=== PATIENT | female | born 1980 | race Asian ===

== ENCOUNTER 2017-02-25 09:36 | Emergency (ER) | payer BC ==
[2017-02-25 09:55] VITALS: BP 107/71
== END 2017-02-25 11:35 | disposition left against medical advice (07) ==
LOC: UCEAST 09:36
DX: R10.9 Unspecified abdominal pain (principal); Z53.21 Procedure and treatment not carried out due to patient leaving prior to being seen by health care provider
CPT/HCPCS: 81003; 99212; G0463

== ENCOUNTER 2017-02-25 11:53 | Emergency (ER) | payer BC ==
[2017-02-25] MEDS ORDERED: NS 0.9% 1000 ML* 1,000 ML IV ONE ×2 (14:26→17:25)
[2017-02-25] MEDS ORDERED: Ketorolac INJ* 30 MG/ML 1 ML VIAL IV ONE (14:26)
--- NOTE | 2017-02-25 15:33 | RAD ---
HISTORY: Lower pelvic pain, status post hysterectomy COMPARISONS: None TECHNIQUE: Multiple transverse and longitudinal ultrasound images were obtained of the pelvis using transabdominal using the endovaginal transducer. FINDINGS: UTERUS: The patient is status post hysterectomy. ENDOMETRIUM: The patient is status post hysterectomy. CUL-DE-SAC: There is no free fluid within the cul-de-sac. RIGHT OVARY: The right ovary measures 2.3 x 1.5 x 1.9 cm. Normal arterial and venous waveforms are identifiable within the ovary on spectral Doppler imaging. LEFT OVARY: The left ovary measures 3.1 x 1.4 x 2.6 cm. Normal arterial and venous waveforms are identifiable within the ovary on spectral Doppler imaging. BLADDER: The visualized bladder is unremarkable. IMPRESSION: STATUS POST HYSTERECTOMY. OTHERWISE UNREMARKABLE ULTRASOUND OF THE PELVIS.
--- NOTE | 2017-02-25 15:39 | RAD ---
INDICATION: Right lower quadrant pain. COMPARISON: There are no prior studies available for comparison. TECHNIQUE: Multiple real-time images of the right upper quadrant were obtained. FINDINGS: No gallstones are seen. There is a 0.5 cm gallbladder wall polyp. No gallbladder wall thickening or pericholecystic fluid is seen. No positive sonographic Ramos sign is present. No intra or extrahepatic ductal distention is present. The common bile duct measured 0.4 cm in diameter. The liver is normal in size without significant focal abnormality. The pancreas is partially obscured by overlying bowel gas. The right kidney is normal in size without evidence for hydronephrosis. IMPRESSION: 0.5 CM GALLBLADDER WALL POLYP, OTHERWISE UNREMARKABLE STUDY.
[2017-02-25 15:48] LABS: Hematocrit 38 % (35-47); Hemoglobin 12.6 g/dl (12.0-16.0); Mean Corpuscular HGB Conc 33 g/dl (31-36); Mean Corpuscular Hemoglobin 30 pg (27-31); Mean Corpuscular Volume 89 fL (80-97); Mean Platelet Volume 8 um3 (7.4-10.4); Red Blood Count 4.25 10^6/ul (4.0-5.4); Red Cell Distribution Width 13 % (10.5-15); White Blood Count 5.2 10^3/ul (3.5-10.8)
--- NOTE | 2017-02-25 16:05 | ED ---
Crystal Leary Thomas, scribed for Dash Bates MD on 02/25/17 at 1426 . Abdominal Pain/Female - HPI Summary HPI Summary: Pt is a 36 y/o female referred from [facility] presenting to the ED with abdominal pain onset last night. Accompany Sx: Nausea. In room, pt states pain has improved since onset. Describes the pain as a "pushing" sensation. Pt has not eaten today per Urgent Care's recommendation. PMHx: hysterectomy. - History of Current Complaint Chief Complaint: EDAbdPain Stated Complaint: RT FLANK PAIN/SENT F CC Time Seen by Provider: 02/25/17 13:58 Hx Obtained From: Patient Hx Last Menstrual Period: Pt had hysterectomy Onset/Duration: Lasting Hours - since last night, Still Present Timing: Constant Severity Initially: Mild Severity Currently: Mild Pain Intensity: 4 Pain Scale Used: 0-10 Numeric Location: Other - Bilat Lower Abd Pain Character: Other: - "Pushing" Associated Signs and Symptoms: Positive: Nausea Allergies/Adverse Reactions: Allergies Allergy/AdvReac Type Severity Reaction Status Date / Time No Known Allergies Allergy Verified 11/13/12 06:40 PMH/Surg Hx/FS Hx/Imm Hx Previously Healthy: Yes Cardiovascular History: Denies: Hx Coronary Artery Disease Respiratory History: Denies: Hx Chronic Obstructive Pulmonary Disease (COPD) - Surgical History Surgery Procedure, Year, and Place: hysterectomy Infectious Disease History: No Infectious Disease History: Denies: Traveled Outside the [place] in Last 30 Days - Family History Known Family History: Negative: Cardiac Disease, Hypertension - Social History Occupation: Unemployed - stay at home mom Lives: With Family Alcohol Use: None Hx Substance Use: No Substance Use Type: Reports: None Hx Tobacco Use: No Smoking Status (MU): Never Smoked Tobacco Review of Systems Positive: Abdominal Pain, Nausea All Other Systems Reviewed And Are Negative: Yes Physical Exam Triage Information Reviewed: Yes Vital Signs On Initial Exam: Initial Vitals Temp Pulse Resp BP Pulse Ox 99.4 F 68 20 117/72 100 02/25/17 12:04 02/25/17 12:04 02/25/17 12:04 02/25/17 12:04 02/25/17 12:04 Vital Signs Reviewed: Yes Appearance: Positive: Well-Appearing, No Pain Distress Skin: Positive: Warm, Skin Color Reflects Adequate Perfusion, Dry Head/Face: Positive: Normal Head/Face Inspection Eyes: Positive: Normal ENT: Positive: Normal ENT inspection Neck: Positive: Supple, Nontender Respiratory/Lung Sounds: Positive: Clear to Auscultation, Breath Sounds Present Cardiovascular: Positive: RRR Abdomen Description: Positive: Other: - TENDER TO THE LOWER BILAT ABDOMEN; NO REBOUNDING. Negative: Guarding Bowel Sounds: Positive: Present Musculoskeletal: Positive: Normal Neurological: Positive: Normal Psychiatric: Positive: Normal, Affect/Mood Appropriate - Raysal Coma Scale Coma Scale Total: 15 Diagnostics - Vital Signs Vital Signs Temp Pulse Resp BP Pulse Ox 02/25/17 13:22 98.3 F 60 16 91/47 98 02/25/17 12:07 99.4 F 70 20 117/72 100 02/25/17 12:04 99.4 F 68 20 117/72 100 - Laboratory Lab Results: Lab Results 02/25/17 Range/Units 15:40 WBC 5.2 (3.5-10.8) 10^3/ul RBC 4.25 (4.0-5.4) 10^6/ul Hgb 12.6 (12.0-16.0) g/dl Hct 38 (35-47) % MCV 89 (80-97) fL MCH 30 (27-31) pg MCHC 33 (31-36) g/dl RDW 13 (10.5-15) % Plt Count 241 (150-450) 10^3/ul MPV 8 (7.4-10.4) um3 Neut % (Auto) 51.3 (38-83) % Lymph % (Auto) 39.9 (25-47) % Randall % (Auto) 7.2 (1-9) % Eos % (Auto) 0.6 (0-6) % Baso % (Auto) 1.0 (0-2) % Absolute Neuts (auto) 2.7 (1.5-7.7) 10^3/ul Absolute Lymphs (auto) 2.1 (1.0-4.8) 10^3/ul Absolute Monos (auto) 0.4 (0-0.8) 10^3/ul Absolute Eos (auto) 0 (0-0.6) 10^3/ul Absolute Basos (auto) 0 (0-0.2) 10^3/ul Absolute Nucleated RBC 0 10^3/ul Nucleated RBC % 0 Result Diagrams: 02/25/17 15:40 Lab Statement: Any lab studies that have been ordered have been reviewed, and results considered in the medical decision making process. - Ultrasound No standard instances Ultrasound Interpretation: No Acute Changes - US Pelvis: Status post hysterectomy. Otherwise unremarkable ultrasound of the pelvis. 15:30. Ultrasound Interpretation Completed By: Radiologist - Additional Comments Diagnostic Additional Comments: Ultrasound Abdomen RUQ: Read by Radiologist. Impression: 0.5cm gallbladder wall polyp. Otherwise unremarkable study. Abdominal Pain Fem Course/Dx - Course Course Of Treatment: Chelsea Marroquin presented with a day or so of RLQ pain and mild anorexia, got some pain medicine and is being W/U'd with labs and U/S. Inadvertently a RUQ U/S was performed and negative although a RLQ U/S had been ordered and is now pending. - Diagnoses Provider Diagnoses: Abdominal pain - Provider Notifications Discussed Care Of Patient With: Dr. Alaniz Discharge - Discharge Plan Condition: Stable Disposition: OTHER Discharge Disposition Comment: Sign out to Dr. Alaniz pending US and labs. Referrals: No Primary Care Phys,NOPCP [Primary Care Provider] - The documentation as recorded by the Crystal santos Thomas accurately reflects the service I personally performed and the decisions made by me, Dash Bates MD.
[2017-02-25 16:21] LABS: ALT 13 U/L (7-52); AST 13 U/L (13-39); Albumin 4.2 g/dL (3.2-5.2); Alkaline Phosphatase 66 U/L (34-104); Anion Gap 6 mmol/L (2-11); BUN/Creatinine Ratio 15.9 (8-20); Blood Urea Nitrogen 11 mg/dL (6-24); C Reactive Protein < 1.00 mg/L (< 5.00); CO2 Carbon Dioxide 25 mmol/L (22-32); Calcium 9.3 mg/dL (8.6-10.3); Chloride 106 mmol/L (101-111); EGFR African American 123.1 (>60); EGFR Non-African American 95.7 (>60); Globulin 3.1 g/dL (2-4); Glucose 91 mg/dL (70-100); Potassium 3.6 mmol/L (3.5-5.0); Sodium 137 mmol/L (133-145); Total Protein 7.3 g/dL (6.4-8.9)
[2017-02-25 16:21] LABS: Urine Bilirubin Negative (Negative); Urine Glucose Negative (Negative); Urine Nitrite Negative (Negative)
--- NOTE | 2017-02-25 16:57 | RAD ---
HISTORY: Right lower quadrant pain COMPARISONS: None TECHNIQUE: Multiple transverse and longitudinal ultrasound images were obtained of the right lower quadrant using grayscale and color Doppler imaging. FINDINGS: A tubular, vermiform, hollow viscus consistent with a normal appendix is identified measuring 0.4 cm in diameter. There is no hypervascularity or periappendiceal fluid. IMPRESSION: NORMAL APPENDIX WITHOUT PERIAPPENDICEAL FLUID
[2017-02-25] MEDS ORDERED: Iohexol 300* (CONTRAST) 10 ML SDV IV ONE (18:15)
--- NOTE | 2017-02-25 20:16 | RAD ---
CLINICAL HISTORY: Right lower quadrant pain COMPARISON: Ultrasound dated February 25, 2017 TECHNIQUE: Multiple contiguous axial CT scans were obtained of the abdomen and pelvis after the administration of intravenous contrast. Coronal and sagittal multiplanar reformations are submitted for review. Oral contrast was administered. Delayed images were obtained through the abdomen and pelvis. FINDINGS: LUNG BASES: The lung bases are clear. LIVER: The liver is normal in shape, size, contour, and attenuation. BILE DUCTS: There is no intrahepatic or extrahepatic biliary dilatation. GALLBLADDER: The gallbladder is normal, without pericholecystic inflammatory change. PANCREAS: The pancreas is normal, without mass or ductal dilatation. SPLEEN: Normal in size and appearance. UPPER GI TRACT: Evaluation of the gastrointestinal tract is limited by incomplete gastric distention. The upper GI tract is unremarkable. SMALL BOWEL AND MESENTERY: The small bowel is normal in contour, course, and caliber. There is no obstruction or dilatation. COLON: There is mucosal thickening of the rectum. There is a tubular, vermiform, hollow viscus that is blind ending, and originates from the cecum, consistent with a normal appendix. There is no periappendiceal inflammatory change. This is best seen on axial images 111 through 123 ADRENALS: Normal bilaterally. KIDNEYS: The kidneys are normal in shape, size, contour, and axis. There is no hydronephrosis or nephrolithiasis. BLADDER: The bladder is collapsed and is not well evaluated PELVIC ORGANS: The pelvic organs are not visualized. AORTA: The aorta is normal. IVC: Unremarkable LYMPH NODES: There is no lymphadenopathy by size criteria. ABDOMINAL WALL: There is no evidence for abdominal wall hernia. BONES AND SOFT TISSUES: Unremarkable OTHER: None IMPRESSION: NORMAL APPENDIX. THERE IS MUCOSAL THICKENING OF THE DISTAL COLON AND RECTUM SUGGESTIVE OF COLITIS/PROCTITIS IN THE CORRECT CLINICAL SETTING.
[2017-02-25] MEDS ORDERED: metroNIDAZOLE TAB* 250 MG PO ONE (20:38)
[2017-02-25 21:07] VITALS: BP 109/61
--- NOTE | 2017-02-26 00:52 | ED ---
Carmen Leary Salem, scribed for Medardo Alaniz MD on 02/25/17 at 1729 . Progress - Progress Note Progress Note: Patient was signed out from Dr. Bates. - Results/Orders Results/Orders: US - RLQ: IMPRESSION: NORMAL APPENDIX WITHOUT PERIAPPENDICEAL FLUID CT ABD/PELVIS: IMPRESSION: NORMAL APPENDIX. THERE IS MUCOSAL THICKENING OF THE DISTAL COLON AND RECTUM SUGGESTIVE OF COLITIS /PROCTITIS IN THE CORRECT CLINICAL SETTING. Re-Evaluation - Re-Evaluation First Eval Re-Evaluation Time: 17:27 Comment: She still has significant focal tenderness in RLQ. Will order CT. Second Eval Re-Evaluation Time: 20:34 Comment: Discussed plan. Course/Dx - Course Course Of Treatment: Pt was signed out from Dr. Bates. I had discussion with her about finding colitis. I asked her questions about her sx and she states that she has had lower quadrant pain and diarrhea for approximately 1 month. She denies Fhx or personal hx of crohn's or colitis. Pt will follow up with GI and PCP. - Diagnoses Provider Diagnoses: Colitis Discharge - Discharge Plan Condition: Stable Disposition: HOME Prescriptions: HYDROcodone/ACETAMIN 5-325 MG* [Rebuck 5-325 TAB*] 1 tab PO Q6H PRN #16 tab MDD 4 PRN Reason: Pain - Moderate To Severe Patient Education Materials: Colitis (ED) Referrals: [facility]ICIAN REFERRAL [Outside] Jaya Rodriguez MD [Medical Doctor] - Additional Instructions: Please follow up with [facility] referral and Dr. Rodriguez. RETURN TO THE EMERGENCY DEPARTMENT FOR CHANGING OR WORSENING SYMPTOMS. The documentation as recorded by the Carmen santos Salem accurately reflects the service I personally performed and the decisions made by me, Medardo Alaniz MD.
== END 2017-02-25 21:06 | disposition home or self-care (01) ==
LOC: ED 11:53
DX: K52.9 Noninfective gastroenteritis and colitis, unspecified (principal); R10.30 Lower abdominal pain, unspecified; R11.0 Nausea
CPT/HCPCS: 36415; 74177; 76705; 76856; 80053; 81003; 83605; 85025; 86140; 96374; 99284; A9270-GY; J1885; Q9967